=== PATIENT | female | born 1965 | race Caucasian/White ===

== ENCOUNTER 2019-09-14 10:52 | Day surgery (SDC) | payer BC ==
[2019-09-13 14:05] LABS: HEMATOCRIT 41.2 % (36.0-48.0); HEMOGLOBIN 13.7 g/dL (12-16); MCH 30.9 pg (26.0-34.0); MCHC 33.3 g/dL (31.0-37.0); MEAN PLATELET VOLUME 10.4 fL (7.4-10.4); RBC 4.43 10x6/uL (4.00-5.40); RDW 12.8 % (11.5-14.5); WBC 6.8 10x3/uL (4.8-10.8)
[~2019-09-14] VITALS: Ht 165.1 cm; Wt 77.1 kg
--- NOTE | ~2019-09-14 | OP ---
PATIENT NAME: CARLITA STUART MEDICAL RECORD: [id number] :63 LOCATION:[facility] ADMISSION DATE: SURGEON: AIDAN RUST DATE OF OPERATION: 09/14/2019 SURGEON: Aidan Rust DPM PREOPERATIVE DIAGNOSIS: Ganglionic cyst, left foot. POSTOPERATIVE DIAGNOSIS: Ganglionic cyst, left foot. PROCEDURE: Excision of ganglionic cyst, left foot. ANESTHESIA: Local with monitored anesthesia care. HEMOSTASIS: Pneumatic ankle tourniquet inflated to 250 mmHg. ESTIMATED BLOOD LOSS: Minimal. MATERIALS: 3-0 Vicryl, 4-0 nylon. INJECTABLES: A 10 cc of 0.5% bupivacaine plain. The patient has longstanding history of a mass. This was a mass on the left foot. She has pain associated with a shoe pressure from the mask. We have reviewed the risks and benefits of the procedures, complications were reviewed. All questions were answered. She was appropriately consented for excision of ganglion cyst, left foot. The patient was brought into the operating room and placed on the operating table in a supine position. A timeout was called with Dr. Rust, who identified the patient, the surgical site, and the surgery to be performed. Once appropriate anesthesia was obtained, the foot was prepped and draped in the usual aseptic manner. The pneumatic ankle tourniquet was inflated to 250 mmHg on the well-padded left ankle. PROCEDURE IN DETAIL: Excision of ganglionic cyst, left foot. Attention was directed to the dorsal aspect of the left foot and the fourth metatarsal region where a soft tissue mass was identified. A 4-cm linear incision was made directly over the mass. The incision was carried deep to soft tissue with care being taken to retract all vital neurovascular structures. All bleeders were cauterized along the way. The soft tissue mass was then identified at the base of the incision, was noted to be very consistent with a ganglionic cyst. The soft tissue mass was then freed of all soft tissue attachments and passed from the field. The base of the ganglionic cyst was then cauterized with the Bovie. At this time, a second ganglionic cyst was noted to be deeper in the foot. This soft tissue mass was then freed of all soft tissue attachments with both blunt and sharp dissection. The ganglionic cyst was then passed from the field. The base of the ganglionic cyst was cauterized. The surgical site was then irrigated with copious amounts of normal sterile saline via bulb syringe. The surgical site was then investigated for any remaining pathological tissue and none was noted. OPERATIVE REPORT [id number] CARLITA STUART The subcutaneous tissue was then reapproximated and coapted using 3-0 Vicryl. The skin was then reapproximated and coapted with 4-0 nylon. Dressing consisting of Xeroform, 4 x 4's, Kerlix, and Abel bandage was applied to the left foot. The pneumatic ankle tourniquet was deflated and cap refill time was immediate to all digits of the left foot. The patient was discharged home with instructions to ice and elevate the left foot. She was dispensed a postop shoe to help offload the foot. She was provided with prescriptions for Blachly 5/325, Phenergan 25 mg and ibuprofen 800 mg. There were no complications with this procedure. We will follow up with her in 1 week. TRANSINT:[id number] Voice Confirmation ID: [id number] DOCUMENT ID: [id number] AIDAN RUST CC: [id number] DICTATION DATE: 09/14/19 1345 [employer]IL[employer]NAG[employer] PROFESSOR: 09/14/19 1504 [facility] [address] [place] [address]
[~2019-09-14 10:52] MED LIST: TOPROL XL50 MG PO
[2019-09-14 11:26] VITALS: BP 121/71; Ht 165.1 cm; Wt 77.1 kg
== END 2019-09-14 14:50 | disposition home or self-care (01) ==
LOC: D.OPS 10:52 → D.PAN 12:00 → D.OPS 12:00
PROVIDERS: Anesthesiology; ATTEND Podiatrist
DX: M67.472 Ganglion, left ankle and foot (principal)